=== PATIENT | female | born 1960 | race Caucasian/White ===

== ENCOUNTER 2016-11-18 20:14 | Emergency (ER) | payer OTHER ==
[~2016-11-18] VITALS: Ht 152.4 cm; Wt 62.3 kg
[2016-11-18 20:18] VITALS: BP 113/77; PULSE 112; RESP 20; O2SAT 96
[2016-11-18 20:53] LABS: BASOPHILS % (AUTO) 0.2 % (0-3); EOSINOPHILS % (AUTO) 2.3 % (0-5); MONOCYTES % (AUTO) 12.1 % (4-12); Mean Corpuscular Hemoglobin 32.4 pg (27.0-35.0); Mean Corpuscular Volume 99.1 fL (81-100); NEUTROPHILS % (AUTO) 74.6 % (40-74); Platelet Count 318 bil/L (150-400)
[2016-11-18 21:14] LABS: TROPONIN T 0.01 ug/L (0.0-0.011)
[2016-11-18 21:26] LABS: Magnesium 1.7 mg/dL (1.6-2.6)
--- NOTE | 2016-11-18 21:45 | ED.REPORT ---
HPI-General Illness Date of Service Nov 18, 2016 ED Provider: Teja Ortiz MD Pt is a 56 year old female with a history of colostomy, and seizures who presents to the ED complaining of green post-surgical wound discharge onset yesterday. She c/o associated abdominal pain, worsened wound smell, and subjective fever onset this morning. She denies any other symptoms. She reports that she had abdominal hernia repair on 10/31/16 at [facility] and although the surgeon recommended changing the dressing once a day, the pt has been having to change it every 6 hours. The pt reports that she has also recently had two bottom stitches removed by her surgeon from the bottom of her surgical site to drain fluid and obtain a culture. The pt took Tylenol this morning and Oxycodone at 19:00 to relieve her symptoms prior to arrival at the ED. Nursing Notes Stated Complaint: POST SURGICAL INFECTION, FEVER Chief Complaint: General Complaint Nursing Notes Reviewed: Yes Allergies: Coded Allergies: Penicillins (Verified Allergy, Mild, 11/18/16) baclofen (Verified Allergy, Mild, 11/18/16) gabapentin (Verified Allergy, Mild, 11/18/16) latex (Verified Allergy, Mild, 11/18/16) trazodone (Verified Allergy, Mild, 11/18/16) General Time Seen by MD: 21:37 Chief Complaint Other (post-surgical wound discharge) Hx Obtained From: Patient Arrived By: Walk-in Sudden in Onset?: No Onset Occurred: Yesterday Symptom Duration: Since onset Location: : Abdomen Quality: Painful Severity: Current: Mild Severity: Maximum: Moderate Recent Healthcare: Recent doctor visit Similar Sx Previous: No Past Medical History Past Medical History Seizures Denies: Congestive heart failure, Diabetes mellitus, Hypertension Past Surgical History Abdominal hernia ventral incision with mesh Colostomy Smoking History Current Every Day Smoker Social History Alcohol Use: "Social" Drug Use: Denies drug use Other Social History: Good social support Ambulatory Status Independent Review of Systems + post-surgical wound smell + post-surgical wound discharge, green Full Review of Systems Constitutional: Reports: Fever Respiratory: Denies: Non-productive cough, Shortness of breath GI: Reports: Abdominal pain Complete sys rev & neg: except as marked. Physical Exam Vital Signs Vital Signs Date Time Temp Pulse Resp B/P Pulse Ox O2 Delivery O2 Flow Rate FiO2 11/19/16 00:39 37.2 101 20 115/81 98 Room Air 11/18/16 20:18 37.2 112 20 113/77 96 Room Air Initial VS: Reviewed, Vital signs abnormal Head / Eyes: Atraumatic, Normocephalic Neck: Supple, Full range of motion Respiratory: Breath sounds normal, Clear to auscultation, No respiratory distress Cardiovascular: Regular rate & rhythm, Heart sounds normal, Intact distal pulses Extremities: Vascular intact, Neuro intact Skin: Warm, Dry, No cyanosis Neurologic: Alert, Oriented, Nonfocal Psychiatric: Mood/affect normal, Behavior normal General/Constitutional: Awake, Alert, Cooperative ABDOMEN: The lower abdominal wound has dehisced and is completely open. 3 cm deep cavity full of purulent material. Interpretation & Diagnostics Lab Results Interpretation Result Diagram: 11/18/16203911/18/162039 Test 11/18/16 20:40 11/18/16 21:00 White Blood Count 13.2th/mm3 (3.8-10.1) Red Blood Count 3.46mil/mm3 (3.90-5.20) Hemoglobin 11.2g/dL (12.0-15.6) Hematocrit 34.3% (35.0-46.0) Mean Corpuscular Volume 99.1fL (81-100) Mean Corpuscular Hemoglobin 32.4pg (27.0-35.0) Mean Corpuscular Hemoglobin Concent 32.7% (32.0-37.0) Red Cell Distribution Width 13.4% (12.3-15.4) Platelet Count 318bil/L (150-400) Neutrophils (%) (Auto) 74.6% (40-74) Lymphocytes (%) (Auto) 10.5% (14-46) Monocytes (%) (Auto) 12.1% (4-12) Eosinophils (%) (Auto) 2.3% (0-5) Basophils (%) (Auto) 0.2% (0-3) Sodium Level 135mEq/L (134-144) Potassium Level 3.9mEq/L (3.5-5.2) Chloride Level 98mEq/L (97-108) Carbon Dioxide Level 21mmol/L (18-29) Blood Urea Nitrogen 14mg/dL (6-24) Creatinine 0.64mg/dL (0.57-1.00) Estimat Glomerular Filtration Rate 137mL/min (>59) Glucose Level 142mg/dL (60-99) Lactic Acid Level 1.0mmol/L (0.4-2.0) Calcium Level 9.1mg/dL (8.5-10.1) Magnesium Level 1.7mg/dL (1.6-2.6) Total Bilirubin 0.6mg/dL (0.0-1.2) Aspartate Amino Transf (AST/SGOT) 12U/L (0-50) Alanine Aminotransferase (ALT/SGPT) 9U/L (0-32) Alkaline Phosphatase 69U/L (25-150) Troponin T 0.010ug/L (0.0-0.011) Total Protein 7.1g/dL (6.4-8.4) Albumin 3.7g/dL (3.4-5.0) Hold Urine Received (Received) Re-Eval/Medical Decision Med Decision/Clinical Course 86-year-old female who recently had lower abdominal ventral midline hernia repair. The wound subsequently dehisced and now has formed considerable purulent discharge. Her white blood count is mildly elevated at 13,700. Lactic acid is not elevated. Other than a mild tachycardia vital signs are stable with no hypotension and no fever. Her case was discussed with , on-call surgeon for her surgeon at [facility]. He recommended continued dressing changes, antibiotics, and follow-up in 2 days at their clinic. The purulent drainage was recultured. Source of Hx: Old records Time of Eval: 22:58 Re-Evaluation/Progress Note: Pt rechecked. Informed pt of plan for discharge. Pt understands and agrees with plan for discharge. F/U instructions and RTER warnings given. All questions addressed. Consultation : Call Returned at: 22:56 [employer] Director: Agrees with eval, Agrees with plan Note: Consult with Dr. Salas at [facility]. Discussed pt's case and recommends having her following up on Sunday at [facility]. Counseled Regarding: Diagnosis, Lab results, Need for follow-up, When/why to return to ED Discharge & Departure Primary Impression: Postoperative wound abscess Encounter type: subsequent encounter Qualified Code: T81.4XXD - Infection following a procedure, subsequent encounter Disposition: Home Discharge Condition All VS Reviewed: Yes Condition: Stable Patient Instructions: Abscess (ED) Additional Instructions: The wound drainage was cultured. The case was discussed with . He recommended continued irrigation and dressing changes once or twice daily, antibiotics, and follow up Sunday in the clinic at [facility]. Call first thing in the morning to get an appointment. Clindamycin 300 mg by mouth 3 times a day, prepack dispensed. Contact me at [phone] between the hours of 9 PM and 6 AM for the next couple of nights if you have any questions or concerns. Referrals: Rudy Leslie PA-C (PCP) Scribe Attestation Portions of this note were transcribed by Rose Ruiz. I, Dr. Ortiz personally performed the history, physical exam and medical decision-making; I reviewed and confirmed the accuracy of the information in the transcribed note. Signed by: Odell Mitchell, 11/18/16 and 22:50. copies to: Rudy Leslie PA-C, Howard L MD Nov 18, 2016 21:45 Rose Tamayo Nov 18, 2016 21:56
[2016-11-19 00:39] VITALS: BP 115/81; PULSE 101; RESP 20; O2SAT 98
[2016-11-19] MEDS ORDERED: _Clindamycin 150 mg Capsule PO SCH (06:30)
== END 2016-11-19 00:40 | disposition home or self-care (01) ==
LOC: SED 20:14
DX: T81.4XXA Infection following a procedure, initial encounter (principal); Y83.8 Other surgical procedures as the cause of abnormal reaction of the patient, or of later complication, without mention of misadventure at the time of the procedure; F17.200 Nicotine dependence, unspecified, uncomplicated; Z88.0 Allergy status to penicillin; Z88.5 Allergy status to narcotic agent; Z91.040 Latex allergy status